=== PATIENT | female | born 1935 | race Caucasian/White ===

== ENCOUNTER 2018-05-31 14:06 | Emergency (ER) | payer MEDICARE, MEDICAID ==
[2018-05-31 14:34] VITALS: BP 161/81
--- NOTE | 2018-05-31 14:42 | EDM.PDOC ---
ED HPI GENERAL MEDICAL PROBLEM - General Chief Complaint: Neurological Problem Stated Complaint: BLURRED VISION,DIZZY,AND HEADACHE Time Seen by Provider: 05/31/18 14:41 Source of Information: Reports: Patient History Limitations: Reports: No Limitations - History of Present Illness INITIAL COMMENTS - FREE TEXT/NARRATIVE: 82-year-old female presents the ED with visual field deficit. She appreciates blurred vision on right temporal vision. She states this occurred since she awoke this morning. She has no problem with her left eye. Since surgery to the right eye. She has no history of glaucoma. No recent falls or head injuries. Denies headache at this time. He has not been aware of increased floaters in the eye. She does wear eyeglasses usually just for reading. She has had bilateral cataract extractions. She is not on any blood thinners and does not take any aspirin. Onset: Today (Awoke with blurred vision this morning.) Onset Date: 05/31/18 (It appears visual acuity changes occurred sometime during the night when she was sleeping) Duration: Hour(s): Location: Reports: Face Quality: Reports: Other (No pain. 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 (see below) (Only her usual medications.) - Related Data Allergies Allergy/AdvReac Type Severity Reaction Status Date / Time No Known Allergies Allergy Verified 02/17/16 15:10 Home Meds: Home Meds FLUoxetine [PROzac] 40 mg PO DAILY 02/17/16 [History] Propranolol [Inderal LA] 60 mg PO DAILY 02/17/16 [History] Simvastatin [Zocor] 80 mg PO BEDTIME 02/17/16 [History] Smz-Tmp 1 tab PO BID 02/17/16 [History] metFORMIN [Glucophage XR] 500 mg PO BID 02/17/16 [History] predniSONE [Prednisone] 20 mg PO DAILY #7 tablet 02/17/16 [Rx] Past Medical History Cardiovascular History: Reports: High Cholesterol, Hypertension Gastrointestinal History: Reports: Diverticulosis, PUD Genitourinary History: Reports: Urinary Incontinence, UTI, Recurrent Other Genitourinary History: bladder lift Musculoskeletal History: Reports: Arthritis Psychiatric History: Reports: Anxiety, Depression Endocrine/Metabolic History: Reports: Diabetes, Type II - Past Surgical History HEENT Surgical History: Reports: Cataract Surgery, Tonsillectomy, Other (See Below) GI Surgical History: Reports: Appendectomy Female Surgical History: Reports: Breast Reduction, Other (See Below) Social & Family History - Tobacco Use Smoking Status *Q: Never Smoker - Caffeine Use Caffeine Use: Reports: Soda - Recreational Drug Use Recreational Drug Use: No - Living Situation & Occupation Living situation: Reports: , Alone Occupation: Retired ED ROS GENERAL - Review of Systems Review Of Systems: See Below Constitutional: Reports: No Symptoms HEENT: Reports: Glasses, Vision Change (She has a right temporal visual field deficit that she awoke with this morning eyes blurry when she looks to the right side with temporal visual field deficit.) Respiratory: Reports: No Symptoms Cardiovascular: Reports: Blood Pressure Problem (Mild. Mild hypertension), Dyspnea on Exertion Endocrine: Reports: Fatigue GI/Abdominal: Reports: Constipation (Occasional positive constipation) : Reports: Incontinence (Mostly stress-induced.) Musculoskeletal: Reports: Joint Pain Skin: Reports: No Symptoms (Hands shoulders neck low back knees and hips at times) Neurological: Reports: No Symptoms, Headache (Describes a pressure behind her right eye.). Denies: Dizziness, Numbness Psychiatric: Reports: No Symptoms Hematologic/Lymphatic: Reports: No Symptoms Immunologic: Reports: No Symptoms ED EXAM, NEURO - Physical Exam Exam: See Below Exam Limited By: No Limitations General Appearance: Alert, WD/WN, Anxious, Mild Distress Eye Exam: Right Eye: Other (Ultrasound of the eye did not show any signs of retinal detachment. Intraocular pressures were 18 on the right and 16 on the left.), Bilateral Eye: Normal Fundi (I could not identify any fundal abnormalities. Particular could not identify for sure any occlusion of retinal artery or vein for sure There was no fundal bleeding in the retina that I could identify. ), PERRL, Vision Changes (She does have loss of temporal visual field in the right eye when compared to mind.) Throat/Mouth: Normal Inspection, Normal Lips, Normal Oropharynx Head Exam: Atraumatic, Normocephalic Neck: Normal Inspection, Supple, Non-Tender, Full Range of Motion. No: Carotid Bruit, Lymphadenopathy (L), Lymphadenopathy (R) Respiratory/Chest: No Respiratory Distress, Lungs Clear, Normal Breath Sounds, No Accessory Muscle Use Cardiovascular: Normal Peripheral Pulses, Regular Rate, Rhythm, No Edema, No Gallop, No Murmur, No Rub GI/Abdominal: Normal Bowel Sounds, Soft, Non-Tender, No Organomegaly, No Abnormal Bruit, No Mass, Pelvis Stable Neurological: Alert, Normal Mood/Affect, Normal Dorsiflexion, CN II-XII Intact, Normal Plantar Flexion, Normal Gait, Normal Reflexes, Oriented x 3 Extremities: Normal Inspection, Normal Range of Motion, Non-Tender, No Pedal Edema Psychiatric: Normal Affect, Normal Mood Skin Exam: Warm, Dry, Intact, Normal Color, No Rash EKG INTERPRETATION EKG Date: 05/31/18 Time: 15:06 Rhythm: NSR Rate (Beats/Min): 80 Elton: Normal P-Wave: Present QRS: Normal ST-T: Other (Very minimal ST segment depression V4 to V6.) EKG Interpretation Comments: Essentially normal ECG Course - Vital Signs Last Recorded V/S: Last Vital Signs Temp 36.3 C 05/31/18 14:33 Pulse 85 05/31/18 14:33 Resp 20 05/31/18 14:33 BP 161/81 H 05/31/18 14:33 Pulse Ox 90 L 05/31/18 14:33 - Orders/Labs/Meds Orders: Active Orders 24 hr Category Date Time Status EKG Documentation Completion [RC] STAT Care 05/31/18 14:55 Active Meds: Medications Discontinued Medications Generic Name Dose Route Start Last Admin Trade Name Freq PRN Reason Stop Dose Admin Aspirin 324 mg 05/31/18 18:03 05/31/18 18:21 Aspirin PO 05/31/18 18:04 324 mg ONETIME ONE Administration - Radiology Interpretation Free Text/Narrative:: 82-year-old female presents to the ED with a right temporal visual field deficit that she awoke with this morning. When compared to my visual acuity collazo she definitely has a temporal visual field deficit. On looking at the retina I could not identify any retinal vein occlusion or retinal artery occlusion although I suspect this is the case. There is no evidence of glaucoma. No retinal bleeding. Ultrasound done shows no evidence of retinal detachment. CT of her head will be carried out to rule out an occipital lobe infarct. Her blood pressure is controlled at 152/84 at this time. - Re-Assessments/Exams Free Text/Narrative Re-Assessment/Exam: 05/31/18 17:50 CT of the brain reveals ventricles along the basal cisterns and sulci over convexities are mildly prominent. There is diffuse diminished density is noted within the periventricular and subcortical white matter which is with small vessel ischemic demyelination changes. 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 No other abnormal parenchymal densities are identified. No evidence of intracranial hemorrhage. No midline shift or mass effect. Bone window settings reveal that she has had previous bilateral mastoidectomies. 05/31/18 18:00: Spoke to the patient at length about whether or not she wanted to be referred to ophthalmology at this time she states not so. She will try and follow up with business banking manager tomorrow. I've asked her to start aspirin 325 mg once daily the first dose given in the ED. Departure - Departure Time of Disposition: 18:03 Disposition: Home, Self-Care 01 Condition: Fair Clinical Impression: Visual field defect of right eye - Discharge Information *PRESCRIPTION DRUG MONITORING PROGRAM REVIEWED*: Not Applicable *COPY OF PRESCRIPTION DRUG MONITORING REPORT IN PATIENT EDWIN: Not Applicable Referrals: Cinthya Lopez NP [Primary Care Provider] - Forms: ED Department Discharge Additional Instructions: Evaluation in the emergency room today in regards to development of decreased visual acuity in the right eye with loss of vision in the temporal field of vision. On looking at the eye the vessels appear to be patent with no retinal artery occlusion and I could identify. I am concerned there may be some retinal vein occlusion in the inferior part of your eye. However I need an adjunct faculty mathematics department her eye doctor to look at your eye to confirm this. CT of the brain reveals no signs of infarct in the occipital lobe which controls her vision. It does show that you have had previous small infarcts in the past which we call small lacunar infarcts. It is therefore important that you take aspirin 325 mg once daily which is the current standard of care to try and prevent a stroke from occurring. This should be taken once daily in the morning with breakfast. He did receive her first dose in the ER today. Suggest trying to get into an eye doctor tomorrow or the day after New Year's to have your visual collazo checked more thoroughly after dilute dictation of the eye on the right side. - My Orders Last 24 Hours: My Active Orders 05/31/18 14:55 EKG Documentation Completion [RC] STAT - Assessment/Plan Last 24 Hours: My Active Orders 05/31/18 14:55 EKG Documentation Completion [RC] STAT
--- NOTE | 2018-05-31 15:44 | CT ---
Head CT Technique: Multiple axial sections through the brain were obtained. Intravenous contrast was not utilized. Comparison: No prior intracranial imaging is available. Findings: Ventricles along with basal cisterns and sulci over the convexities are mildly prominent. Diffuse diminished density is noted within the periventricular and subcortical white matter which is compatible with small vessel ischemic demyelination change. Scattered lacunar infarcts, which are likely old, are seen on both sides of the basal ganglia. No other abnormal parenchymal densities are seen. No evidence of intracranial hemorrhage. No midline shift or mass effect is seen. Bone window settings were reviewed which shows previous mastoidectomy on both sides. Visualized sinuses are clear. No acute calvarial abnormality is seen. Impression: 1. Previous mastoidectomy on both sides. 2. Senescent change as described above. 3. Nothing acute is appreciated on noncontrast head CT exam. Diagnostic code #2
[2018-05-31] MEDS ORDERED: Aspirin 81 MG Tab.Chew PO ONE (18:03)
== END 2018-05-31 18:40 | disposition home or self-care (01) ==
LOC: JD.ED 14:06
DX: H53.40 Unspecified visual field defects (principal); I10 Essential (primary) hypertension; E11.9 Type 2 diabetes mellitus without complications; Z79.899 Other long term (current) drug therapy; Z98.890 Other specified postprocedural states; Z90.49 Acquired absence of other specified parts of digestive tract
CPT/HCPCS: 70450; 93005; 99284; A9270

== ENCOUNTER 2019-05-07 17:43 | Emergency (ER) | payer MEDICARE, MEDICAID ==
[2019-05-07 18:16] VITALS: BP 187/93; PULSE 85
--- NOTE | 2019-05-07 19:12 | CT ---
Head CT Technique: Multiple axial sections through the brain were obtained. Intravenous contrast was not utilized. Comparison: Previous head CT study of 05/31/18. Findings: Ventricles along with basal cisterns and sulci over the convexities are mildly prominent. Diminished density is noted within the periventricular and subcortical white matter which is compatible with small vessel ischemic demyelination change which is felt to be stable. Several lacunar infarcts are noted within the basal ganglia also felt to be stable. No other abnormal parenchymal densities are seen. No evidence of intracranial hemorrhage. No midline shift or mass effect is seen. Soft tissue swelling and hematoma is noted within the left frontal scalp and left periorbital region. Bone window settings were reviewed which shows no acute calvarial abnormality. Previous mastoid surgery is seen bilaterally. Impression: 1. Stable senescent change as noted above. 2. Soft tissue swelling and hematoma within the left frontal scalp and left periorbital region. 3. No acute calvarial abnormality is seen. 4. Other findings which are believed to be incidental as noted above. Diagnostic code #2 This report was dictated in [place] Standard Time
--- NOTE | 2019-05-07 19:20 | CT ---
CT facial bones Technique: Multiple axial sections through the facial bones were obtained. Reconstructed coronal and sagittal images were reviewed. Findings: Soft tissue swelling and soft tissue hematoma is again noted within the left frontal scalp and left periorbital region. Nothing acute is seen within the paranasal sinuses. Previous mastoidectomy is noted on both sides. Inferior mandible was not included on the study. Minimally depressed right inferior orbital floor is noted which is compatible with fracture although not certain if this is acute or old. No additional orbital fracture is seen. Zygomatic arches are intact. Visualized mandibles are intact. No nasal bone fracture is identified. Minimal nasal septal deviation is noted. Impression: 1. Soft tissue swelling within the left frontal and left periorbital regions. 2. Minimal depressed inferior right orbital floor fracture is noted. Uncertain if this is acute or old but I believe displacement is not significant enough to warrant fixation. 3. Other findings which are felt to be incidental. No other acute finding is seen. Diagnostic code #3 This report was dictated in [place] Standard Time
[2019-05-07] MEDS ORDERED: Acetaminophen 325 MG Tab PO ONE (19:39)
--- NOTE | 2019-05-07 19:42 | EDM.PDOC ---
ED HPI GENERAL MEDICAL PROBLEM - General Chief Complaint: Head Injury Stated Complaint: FACIAL INJURIES/FALL Time Seen by Provider: 05/07/19 18:23 Source of Information: Reports: Patient, Family, RN Notes Reviewed (Family) - History of Present Illness INITIAL COMMENTS - FREE TEXT/NARRATIVE: 83 year old female tripped and fell a few hrs ago at the [employer]. Ended up with L "black eye" No Loc. Is not on blood thinners. Was mildly dizzy initially but that is gone. No Niño, mild localized facial discomfort. There has been no nausea or vomiting. very mild neck stiffness. No chest pain or difficulty breathing. 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: Other (see below) Other 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 INSPECTOR: ice - Related Data Allergies Allergy/AdvReac Type Severity Reaction Status Date / Time donepezil [From Aricept] Allergy Nausea Verified 05/07/19 18:11 Penicillins Allergy Hives Verified 05/07/19 18:11 flu vaccine Allergy Cannot Uncoded 05/07/19 18:11 Remember Home Meds: Home Meds FLUoxetine [PROzac] 40 mg PO DAILY 02/17/16 [History] Propranolol [Inderal LA] 60 mg PO DAILY 02/17/16 [History] Simvastatin [Zocor] 80 mg PO BEDTIME 02/17/16 [History] Smz-Tmp 1 tab PO BID 02/17/16 [History] metFORMIN [Glucophage XR] 500 mg PO BID 02/17/16 [History] predniSONE [Prednisone] 20 mg PO DAILY #7 tablet 02/17/16 [Rx] Past Medical History Cardiovascular History: Reports: High Cholesterol, Hypertension Gastrointestinal History: Reports: Diverticulosis, PUD Genitourinary History: Reports: Urinary Incontinence, UTI, Recurrent Other Genitourinary History: bladder lift Musculoskeletal History: Reports: Arthritis Psychiatric History: Reports: Anxiety, Depression Endocrine/Metabolic History: Reports: Diabetes, Type II - Past Surgical History HEENT Surgical History: Reports: Cataract Surgery, Tonsillectomy, Other (See Below) GI Surgical History: Reports: Appendectomy Female Surgical History: Reports: Breast Reduction, Other (See Below) Social & Family History - Tobacco Use Smoking Status *Q: Never Smoker - Caffeine Use Caffeine Use: Reports: Coffee - Recreational Drug Use Recreational Drug Use: No - Living Situation & Occupation Living situation: Reports: , Alone Occupation: Retired ED ROS GENERAL - Review of Systems Review Of Systems: See Below Constitutional: Denies: Diaphoresis HEENT: Denies: Ear Discharge, Ear Pain, Eye Pain, Throat Pain, Vertigo Respiratory: Denies: Shortness of Breath Cardiovascular: Denies: Chest Pain GI/Abdominal: Denies: Abdominal Pain, Nausea, Vomiting Musculoskeletal: Reports: Neck Pain (very mild neck stiffness). Denies: Shoulder Pain, Arm Pain, Back Pain, Leg Pain Skin: Reports: Bruising (L upper and lower eyelids) Neurological: Reports: Dizziness (gone), Headache (gone). Denies: Numbness, Syncope, Tingling, Trouble Speaking, Weakness, Change in Speech ED EXAM, HEAD INJURY - Physical Exam Exam: See Below General Appearance: Alert, No Apparent Distress Head: Facial Ecchymosis (L periorbital), Facial Tenderness (mild L periorbital) . No: Scalp Swelling, Scalp Abrasions, Scalp Hematoma, Scalp Tenderness, Facial Lacerations Eyes: Bilateral Eye: PERRL Ears: Normal External Exam, Normal Canal Nose: Normal Inspection Throat/Mouth: Normal Inspection Neck: No: Spinous Processes Tender, Tender Midline Respiratory: No Respiratory Distress, Lungs Clear, Normal Breath Sounds, Chest Non-Tender Cardiovascular: Regular Rate, Rhythm GI/Abdominal Exam: Soft, Non-Tender Extremities: Normal Inspection, Normal Range of Motion Neurologic: No Motor/Sensory Deficits, Normal Mood/Affect, Oriented x 3 Skin: Warm/Dry Course - Vital Signs Last Recorded V/S: Last Vital Signs Temp 97.0 F 05/07/19 18:14 Pulse 85 05/07/19 18:14 Resp 20 05/07/19 18:14 BP 187/93 H 05/07/19 18:14 Pulse Ox 99 05/07/19 18:14 - Orders/Labs/Meds Meds: Medications Discontinued Medications Generic Name Dose Route Start Last Admin Trade Name Vanesa PRN Reason Stop Dose Admin Acetaminophen 650 mg 05/07/19 19:39 05/07/19 20:12 Tylenol PO 05/07/19 19:40 650 mg NOW ONE Administration - Re-Assessments/Exams Free Text/Narrative Re-Assessment/Exam: 05/07/19 19:38 CT of face negative for acute fracture, CT of head, no acute abnormality. She was up to bathroom with walker without difficulty, discharge instr. as documented. Departure - Departure Time of Disposition: 19:39 Disposition: Home, Self-Care 01 Condition: Fair Clinical Impression: Fall, Facial contusion, Periorbital hematoma - Discharge Information Instructions: Contusion, [id number], Hematoma, [id number] Referrals: Cinthya Lopez NP [Primary Care Provider] - Forms: ED Department Discharge Additional Instructions: Intermittent ice packs tonight and for the next 2-3 days, elevating head and face above chest will help the swelling go down more quickly. As discussed the bruising will spread to involve much more of the left face. Continue current medications as prescribed. Follow-up clinic in about 4-5 days for recheck. Return to ED as needed if symptoms worsening in any way.
== END 2019-05-07 20:17 | disposition home or self-care (01) ==
LOC: JD.ED 17:43
DX: S05.12XA Contusion of eyeball and orbital tissues, left eye, initial encounter (principal); E11.9 Type 2 diabetes mellitus without complications; I10 Essential (primary) hypertension; Z98.890 Other specified postprocedural states; Z90.49 Acquired absence of other specified parts of digestive tract; Z79.899 Other long term (current) drug therapy; Z88.0 Allergy status to penicillin; Z88.8 Allergy status to other drugs, medicaments and biological substances; Z79.84 Long term (current) use of oral hypoglycemic drugs; W01.10XA Fall on same level from slipping, tripping and stumbling with subsequent striking against unspecified object, initial encounter
CPT/HCPCS: 70450; 70486; 99283; A9270; 99282

== ENCOUNTER 2020-03-01 19:42 | Emergency (ER) | payer MEDICARE, MEDICAID ==
[2020-03-01 20:03] VITALS: BP 156/78; PULSE 110
--- NOTE | 2020-03-01 20:17 | EDM.PDOC ---
ED HPI GENERAL MEDICAL PROBLEM - General Chief Complaint: Cardiovascular Problem Stated Complaint: [facility] Time Seen by Provider: 03/01/20 20:07 - History of Present Illness INITIAL COMMENTS - FREE TEXT/NARRATIVE: 84-year-old female presents the emergency room with increasing shortness of breath and hypoxia. She is COVID positive it is unclear when her COVID test was done but I believe last week. Patient became more short of breath and hypoxic through the course of today. It is unclear if she is having any chest pain or chest pressure with this. She is mildly tachycardic. She does not complain of any pain. Just been sick and tired. She is a long-term resident at a senior living facility. No other history is available at this time apparently her COVID was resulted on Friday according to the patient's daughter. Patient's daughter who is has power of tax attorney status the patient does not want to be put on any life sustaining machines but if symptoms treatable she wants it treated. The daughter will talk it over with family to clarify CODE STATUS Treatments JAVA DEVELOPER CONSULTANT: Reports: Other (see below) Other Treatments JAVA DEVELOPER CONSULTANT: BLS transfer from [place]. Came with oxygen in place - Related Data Allergies Allergy/AdvReac Type Severity Reaction Status Date / Time donepezil [From Aricept] Allergy Nausea Verified 03/01/20 19:52 Penicillins Allergy Hives Verified 03/01/20 19:52 flu vaccine Allergy Cannot Uncoded 03/01/20 19:52 Remember Home Meds: Home Meds FLUoxetine [PROzac] 40 mg PO DAILY 02/17/16 [History] Propranolol [Inderal LA] 60 mg PO DAILY 02/17/16 [History] Simvastatin [Zocor] 80 mg PO BEDTIME 02/17/16 [History] Smz-Tmp 1 tab PO BID 02/17/16 [History] metFORMIN [Glucophage XR] 500 mg PO BID 02/17/16 [History] predniSONE [Prednisone] 20 mg PO DAILY #7 tablet 02/17/16 [Rx] Past Medical History Cardiovascular History: Reports: High Cholesterol, Hypertension Gastrointestinal History: Reports: Diverticulosis, PUD Genitourinary History: Reports: Urinary Incontinence, UTI, Recurrent Other Genitourinary History: bladder lift Musculoskeletal History: Reports: Arthritis Psychiatric History: Reports: Anxiety, Depression Endocrine/Metabolic History: Reports: Diabetes, Type II - Past Surgical History HEENT Surgical History: Reports: Cataract Surgery, Tonsillectomy, Other (See Below) GI Surgical History: Reports: Appendectomy Female Surgical History: Reports: Breast Reduction, Other (See Below) Social & Family History - Tobacco Use Tobacco Use Comment: no information available - Caffeine Use Caffeine Use: Reports: Coffee, Tea - Recreational Drug Use Recreational Drug Use: No - Living Situation & Occupation Living situation: Reports: , Alone Occupation: Retired ED ROS GENERAL - Review of Systems Review Of Systems: See Below Constitutional: Reports: Fever (Possible) HEENT: Reports: No Symptoms Respiratory: Reports: Shortness of Breath, Cough Cardiovascular: Reports: No Symptoms Endocrine: Reports: No Symptoms GI/Abdominal: Reports: No Symptoms : Reports: No Symptoms Musculoskeletal: Reports: No Symptoms Skin: Reports: No Symptoms Neurological: Reports: No Symptoms Psychiatric: Reports: No Symptoms Hematologic/Lymphatic: Reports: No Symptoms ED EXAM, GENERAL - Physical Exam Exam: See Below Exam Limited By: Other (She appears to have some underlying dementia) Eye Exam: Bilateral Eye: Normal Inspection Ears: Normal External Exam, Normal Canal, Hearing Grossly Normal, Normal TMs Nose: Normal Inspection, Normal Mucosa, No Blood Throat/Mouth: Normal Inspection, Normal Lips, Normal Gums, Normal Oropharynx, Normal Voice, No Airway Compromise. No: Normal Teeth (Dentures in place) Head: Atraumatic, Normocephalic Neck: Normal Inspection, Supple, Non-Tender, Full Range of Motion. No: Lymphadenopathy (L), Lymphadenopathy (R) Respiratory/Chest: No Respiratory Distress, Lungs Clear, Normal Breath Sounds Cardiovascular: Normal Peripheral Pulses, Regular Rate, Rhythm, No Edema, No Murmur, Tachycardia (Slightly over 100) GI/Abdominal: Normal Bowel Sounds, Soft, Non-Tender, No Organomegaly, No Distention, No Abnormal Bruit, No Mass Back Exam: Normal Inspection, Full Range of Motion. No: CVA Tenderness (L), CVA Tenderness (R) Extremities: Normal Inspection, No Pedal Edema Neurological: Alert Psychiatric: Normal Affect, Normal Mood Skin Exam: Warm, Dry, Intact Lymphatic: No Adenopathy Course - Vital Signs Last Recorded V/S: Last Vital Signs Temp 36.3 C 03/01/20 19:57 Pulse 110 H 03/01/20 19:57 Resp 22 H 09/30/20 19:57 BP 156/78 H 03/01/20 19:57 Pulse Ox 82 L 03/01/20 19:57 - Orders/Labs/Meds Orders: Active Orders 24 hr Category Date Time Status EKG Documentation Completion [RC] STAT Care 03/01/20 20:32 Active Chest 1V Frontal [CR] Stat Exams 03/01/20 20:35 Taken Labs: Laboratory Tests 03/01/20 03/01/20 03/01/20 Range/Units 20:15 20:15 20:15 WBC 6.44 (3.98-10.04) K/mm3 RBC 4.40 (3.98-5.22) M/mm3 Hgb 12.6 (11.2-15.7) gm/dl Hct 37.6 (34.1-44.9) % MCV 85.5 (79.4-94.8) fl MCH 28.6 (25.6-32.2) pg MCHC 33.5 (32.2-35.5) g/dl RDW Std Deviation 40.3 (36.4-46.3) fL Plt Count 211 (182-369) K/mm3 MPV 10.3 (9.4-12.3) fl Neutrophils % (Manual) 82 H (40-60) % Band Neutrophils % 0 (0-10) % Lymphocytes % (Manual) 14 L (20-40) % Atypical Lymphs % 0 % Monocytes % (Manual) 2 (2-10) % Eosinophils % (Manual) 0 L (0.7-5.8) % Basophils % (Manual) 2 H (0.1-1.2) Platelet Estimate Adequate Plt Morphology Comment Normal RBC Morph Comment Normal D-Dimer, Quantitative 1.33 H (0.19-0.50) mg/L Sodium 137 (136-145) mEq/L Potassium 3.6 (3.5-5.1) mEq/L Chloride 100 (98-107) mEq/L Carbon Dioxide 26 (21-32) mEq/L Anion Gap 14.6 (5-15) BUN 27 H (7-18) mg/dL Creatinine 0.9 (0.55-1.02) mg/dL Est Cr Clr Drug Dosing TNP Estimated GFR (MDRD) 60 (>60) mL/min BUN/Creatinine Ratio 30.0 H (14-18) Glucose 176 H (83-115) mg/dL Calcium 8.9 (8.5-10.1) mg/dL Ferritin (8-252) ng/ml Total Bilirubin 0.3 (0.2-1.0) mg/dL AST 39 H (15-37) U/L ALT 31 (14-59) U/L Alkaline Phosphatase 56 (46-116) U/L Lactate Dehydrogenase 337 H (81-234) U/L Troponin I < 0.017 (0.00-0.056) ng/mL C-Reactive Protein 13.5 H* (<1.0) mg/dL Total Protein 6.4 (6.4-8.2) g/dl Albumin 2.7 L (3.4-5.0) g/dl Globulin 3.7 gm/dL Albumin/Globulin Ratio 0.7 L (1-2) 03/01/20 Range/Units 20:15 WBC (3.98-10.04) K/mm3 RBC (3.98-5.22) M/mm3 Hgb (11.2-15.7) gm/dl Hct (34.1-44.9) % MCV (79.4-94.8) fl MCH (25.6-32.2) pg MCHC (32.2-35.5) g/dl RDW Std Deviation (36.4-46.3) fL Plt Count (182-369) K/mm3 MPV (9.4-12.3) fl Neutrophils % (Manual) (40-60) % Band Neutrophils % (0-10) % Lymphocytes % (Manual) (20-40) % Atypical Lymphs % % Monocytes % (Manual) (2-10) % Eosinophils % (Manual) (0.7-5.8) % Basophils % (Manual) (0.1-1.2) Platelet Estimate Plt Morphology Comment RBC Morph Comment D-Dimer, Quantitative (0.19-0.50) mg/L Sodium (136-145) mEq/L Potassium (3.5-5.1) mEq/L Chloride (98-107) mEq/L Carbon Dioxide (21-32) mEq/L Anion Gap (5-15) BUN (7-18) mg/dL Creatinine (0.55-1.02) mg/dL Est Cr Clr Drug Dosing Estimated GFR (MDRD) (>60) mL/min BUN/Creatinine Ratio (14-18) Glucose (83-115) mg/dL Calcium (8.5-10.1) mg/dL Ferritin 519 H (8-252) ng/ml Total Bilirubin (0.2-1.0) mg/dL AST (15-37) U/L ALT (14-59) U/L Alkaline Phosphatase (46-116) U/L Lactate Dehydrogenase (81-234) U/L Troponin I (0.00-0.056) ng/mL C-Reactive Protein (<1.0) mg/dL Total Protein (6.4-8.2) g/dl Albumin (3.4-5.0) g/dl Globulin gm/dL Albumin/Globulin Ratio (1-2) Meds: Medications Discontinued Medications Generic Name Dose Route Start Last Admin Trade Name Freq PRN Reason Stop Dose Admin Dexamethasone 4 mg 03/02/20 00:58 Dexamethasone IVPUSH 03/02/20 00:59 ONETIME ONE - Re-Assessments/Exams Free Text/Narrative Re-Assessment/Exam: 03/02/20 01:06 In the patient's course I had a discussion with the patient's daughter, Mariama she stated that they did not want her put on machines if it was just can keep her alive. We had a long discussion about DNR versus full code and need to make a decision. She discussed it with her siblings and they would like to make her DNR. I also discussed with Mariama that I did not do a CTA with her elevated d- dimer and she understands this. We were fortunate to find a bed in [place] at [facility]. Dr. James is kind enough to accept. His chest x-ray is consistent with viral pneumonia COVID pattern albeit her infiltrates are slightly worse on the left compared to the right but she has peripheral patchy infiltrates bilaterally involving the middle and lower lobes. EKG shows no acute changes. Labs see above did receive a dose of 4 mg dexamethasone IV. Departure - Departure Time of Disposition: 01:10 Disposition: DC/Tfer to [facility] Reason for Transfer *Q: Other Clinical Impression: Pneumonia due to COVID-19 virus Referrals: Cinthya Lopez NP [Primary Care Provider] - Forms: ED Department Discharge Sepsis Event Note (ED) - Evaluation Sepsis Screening Result: No Definite Risk - Focused Exam Vital Signs: Vital Signs Temp Pulse Resp BP Pulse Ox 03/01/20 19:57 36.3 C 110 H 22 H 156/78 H 82 L - My Orders Last 24 Hours: My Active Orders 03/01/20 20:32 EKG Documentation Completion [RC] STAT 03/01/20 20:35 Chest 1V Frontal [CR] Stat - Assessment/Plan Last 24 Hours: My Active Orders 03/01/20 20:32 EKG Documentation Completion [RC] STAT 03/01/20 20:35 Chest 1V Frontal [CR] Stat
[2020-03-02] MEDS ORDERED: Dexamethasone 4 MG/ML SDV IVPUSH ONE (00:58)
== END 2020-03-02 01:30 ==
LOC: JD.ED 19:42 → SUPCPDRO 19:42 → JD.ED 03-02 01:30
DX: U07.1 COVID-19 (principal); J12.89 Other viral pneumonia; E78.00 Pure hypercholesterolemia, unspecified; I10 Essential (primary) hypertension; F41.9 Anxiety disorder, unspecified; F32.9 Major depressive disorder, single episode, unspecified; E11.9 Type 2 diabetes mellitus without complications; Z79.84 Long term (current) use of oral hypoglycemic drugs; Z88.1 Allergy status to other antibiotic agents; Z88.0 Allergy status to penicillin; Z88.8 Allergy status to other drugs, medicaments and biological substances; Z88.7 Allergy status to serum and vaccine
CPT/HCPCS: 36415; 71045; 80053; 82728; 83615; 84484; 85007; 85027; 85379; 86140; 93005; 96374; 99285; J1100; 93010; 99284